=== PATIENT | male | born 1995 | race Caucasian/White ===

== ENCOUNTER 2017-06-03 13:57 | Observation (INO) | payer BC ==
--- NOTE | 2017-06-03 14:23 | EDPHY ---
H & P Time Seen by Provider: 06/03/17 14:19 HPI/ROS: Chief complaint. Possible TIA HPI. Patient is 21-year-old male presents emergency department with a 4 min episode of double vision today. It spontaneously resolved. The patient has a history of CVAs and TIAs beginning back in February when he experience double vision. He had also right vision loss in March and MRI showed old CVAs including CVA in the cerebellum and occipital areas. The patient was started on Plavix. On 05/20 the patient again had another TIA this time with left- sided visual loss. He was then started on Coumadin. Apparent MRI showed a CVA in the temporal lobe. Workup is indicated a possible pulmonary shunt as an etiology. 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 The episode today had no peripheral symptoms including no weakness or altered sensation. Denies chest discomfort or trouble breathing. He is now back to normal. He had a INR done today which showed an INR of 1.88. Much of the patient's workup has been done in [place]. He was seen by neurologist at [facility] also. ROS Constitutional. no fever/chills, no weakness Eyes. Change in vision ENT. no sore throat, no nasal drainage Cardiovascular. no chest pain Respiratory. no shortness of breath, no cough Abdominal. no abdominal pain, no nausea/vomiting, no diarrhea . no problems urinating MS. no calf pain/swelling, no neck/back pain, no joint pain Skin. no rash Lymph. no swollen glands Neuro. no headache, no dizziness, no difficulty walking or with speech Past Medical/Surgical History: CVA on Coumadin, vitiligo, possible antiphospholipid syndrome Social History: Single, nonsmoker, no alcohol Smoking Status: Never smoked Physical Exam: General Appearance: Alert well-developed male no distress vital signs are stable Eyes: Pupils equal and round no pallor or injection. ENT, Mouth: Mucous membranes are moist. Respiratory: There are no retractions, lungs are clear to auscultation. Cardiovascular: Regular rate and rhythm. Gastrointestinal: Abdomen is soft and nontender, no masses, bowel sounds normal. Neurological: Awake and alert, sensory and motor exams grossly normal. Speech is normal. Cranial nerves are normal. There is slight pronator drift which apparently is residual from his previous CVA. Kbwjwa-pl-boht is normal. Otherwise is good strength and wzhl-as-gblq is normal. Right-sided visual field cut with confrontational testing Skin: Warm and dry, no rashes. Musculoskeletal: Neck is supple nontender. Extremities symmetrical, full range of motion. Psychiatric: Patient is oriented X 3, there is no agitation. Constitutional: Initial Vital Signs Heart Rate 75 06/03/17 14:12 Respiratory Rate 18 06/03/17 14:12 Blood Pressure 115/70 06/03/17 14:12 O2 Sat (%) 95 06/03/17 14:12 O2 Delivery Mode Room Air Allergies/Adverse Reactions: Penicillins Allergy (Verified 06/03/17 20:07) Rash Home Medications: Medication Instructions Recorded Warfarin Sodium [Coumadin 4MG (*)] 4 mg PO DAILY@1830 06/03/17 Medical Decision Making - Diagnostics Imaging Results: Imaging Impressions Head CT 06/03/17 15:13 Impression: 1. Encephalomalacia involving the inferolateral and superior portions of the right cerebellum and the medial inferior left occipital cortex, consistent with old posterior circulatory infarcts. 2. There is no acute intracranial abnormality identified on this unenhanced CT evaluation. If there is further clinical concern regarding the patient's symptoms, MR imaging is suggested, if not otherwise contraindicated. Findings were discussed with SVETA TRIMBLE MD at 15:35, on 06/03/2017. Brain MRI 06/03/17 15:29 Impression: 1. Small focal area of diffusion restriction involving the right occipital cortex suspicious for a tiny focus of acute ischemia, new from the prior examination. 2. Remote ischemic infarctions involving the inferior and superior aspects of the right cerebellar hemisphere, similar to the prior exam. Results called to Dr. Sveta Trimble in the Emergency Department at the time of the interpretation.. Head MRA 06/03/17 16:17 Impression: Normal MRA of the [place] as detailed above. Findings discussed with Sveta Trimble M.D. at 17:55 hour, 06/03/2017. Noncontrast head CT shows evidence of old infarcts but no evidence for intracranial bleeding MRI and MRA show a small cortical ischemic infarct Procedures: IV normal saline, monitor Lovenox subcu. Coumadin by mouth ED Course/Re-evaluation: 4:45 p.m. patient tells me he had another 5 2nd episode of double vision. As he we know his INR is low he will be given Lovenox prior to MRI. I have discussed the case with patient's neurologist in [place] Dr. Vishal Greer [phone] who recommends MRI with diffusion an MR angiogram of his brain. Dr. valerie calvillo feels that the patient may be discharged fall appears normal I attempted to speak with patient's neurologist at [facility] Dr. Layla Calderón [phone] but never received a call back. I relayed to the family that the noncontrast head CT shows no evidence of intracranial bleeding I talked with the family regarding findings a new small cortical ischemic infarct that appears to be new today. The patient, his parents and I discussed treatment plan including recommendation for admission. They expressed understanding and agreement. I consulted discussed case with Dr. Camarena, hospitalist who agrees to the admission I consulted discussed case with Dr. Bey, neurology, who agrees with treatment plan and will consult on the patient Differential Diagnosis: Patient is a young male having multiple CVAs and TIAs. We see a new infarct on MRI today. He had visual symptoms and subtherapeutic INR. He has now been treated with Lovenox and extra Coumadin. A patient working diagnosis is probable antiphospholipid syndrome or pulmonary shunt. Critical Care Time: Critical care time exclusive procedure 50 min - Data Points Medications Given: Discontinued Medications Enoxaparin Sodium (Lovenox) 60 mg SC EDNOW ONE Stop: 06/03/17 16:46 Last Admin: 06/03/17 17:56 Dose: 60 mg Warfarin Sodium (Coumadin) 8 mg PO EDNOW ONE Stop: 06/03/17 19:24 Last Admin: 06/03/17 19:57 Dose: 8 mg Departure - Departure Disposition: [facility] Inpatient Acute Clinical Impression: Acute ischemic stroke Condition: Fair
[2017-06-03] MEDS ORDERED: GADOBUTROL 10 ML VIAL IVP ONE (16:31)
[2017-06-03] MEDS ORDERED: ENOXAPARIN 60 MG/0.6 ML SYR SC ONE (16:45)
[2017-06-03] MEDS ORDERED: WARFARIN SODIUM 4 MG TAB PO ONE (19:23)
[2017-06-03] MEDS ORDERED: ACETAMINOPHEN 325 MG TAB PO PRN (20:58)
[2017-06-03] MEDS ORDERED: ONDANSETRON 4 MG/2 ML VIAL IVP PRN (20:58)
--- NOTE | 2017-06-03 21:31 | GHP ---
[f rep st] HISTORY AND PHYSICAL DATE OF ADMISSION: 06/03/2017 CHIEF COMPLAINT: Double vision. HISTORY OF PRESENT ILLNESS: This is a 21-year-old male, who has had 5 strokes since March of this year. He has been worked up, and has a working diagnosis of antiphospholipid antibody syndrome with possible pulmonary shunt which has not been proven. He was started on Coumadin at the beginning of t he month. At 1:30 today, he developed double vision which lasted for 4 minutes and then self resolve d. Currently, he is asymptomatic. He has some residual right arm numbness and coordination problems and some mild weakness. He denies any new focal numbness or weakness at this time. PAST MEDICAL HISTORY: Vitiligo and shingles. PAST SURGICAL HISTORY: Denies. MEDICATIONS: Warfarin. ALLERGIES: Penicillin. SOCIAL HISTORY: He is from [place], but is in college in [place]. He is followed by a neurologist at the [facility]. He denies any alcohol, tobacco, or illicit drug use. FAMILY HISTORY: Significant for strokes in both of his paternal grandparents, as well as an AR in hi s maternal grandfather which occurred in his 50s. REVIEW OF SYSTEMS: Comprehensive 10-point review of systems was done and is negative, except for as mentioned in the HPI. PHYSICAL EXAM: VITAL SIGNS: Blood pressure 130/82, pulse of 81, respiratory rate 16, O2 saturation 96% on room air. Temperature afebrile. GENERAL: No acute distress. HEAD: Normocephalic, atraumat ic. EYES: PERRLA. Sclerae anicteric. MOUTH: Moist mucous membranes. NECK: Supple. No lymphade nopathy. CARDIOVASCULAR: S1, S2. No JVD. No lower extremity edema. PULMONARY: Lungs are clear. No wheezes, rales, or rhonchi. ABDOMEN: Soft, nontender, nondistended. No guarding or rebound ten derness. Normoactive bowel sounds. EXTREMITIES: No clubbing or cyanosis. NEURO: Cranial nerves 2 -12 grossly intact. No focal motor or sensory deficits. Face is symmetric. There is no pronator dr ift. No nystagmus. SKIN: Clear. No rashes. DIAGNOSTICS: INR 1.88. A brain MRI done earlier today, showed a small focal area of diffusion restriction involving the righ t occipital cortex suspicious for tiny focus of acute ischemia. There are also remote ischemic infar ctions involving the inferior and superior aspect of the right cerebellar hemisphere. ASSESSMENT: This is a 21-year-old male with history of recurrent cerebrovascular accident thought to be due to antiphospholipid antibody syndrome, presenting with: Suspected small acute cerebrovascular accident which presented with diplopia that has since resolved. PLAN: The patient will be admitted to the stroke unit. Dr. Bey has been called. The patient does not meet indications for tPA given the resolution of his symptoms. He has been given a dose of Lovenox in the Emergency Department given his subtherapeutic INR. The patient will be admitted to the hospital under observation status. /[id number]/MODL
[2017-06-04 05:31] VITALS: O2SAT 95
[2017-06-04 06:19] LABS: INR 2.01 (0.83-1.16); PROTIME(PATIENT) 22.8 SEC (12.0-15.0)
[2017-06-04 08:16] VITALS: BP 115/70; PULSE 73; RESP 18; TEMP 97.6
[2017-06-04] MEDS ORDERED: ENOXAPARIN 60 MG/0.6 ML SYR SC SCH (10:00)
--- NOTE | 2017-06-04 10:22 | GDS ---
[f rep st] DISCHARGE SUMMARY DISCHARGE DIAGNOSES: 1. Acute right occipital cortex stroke. 2. History of cerebrovascular accident x5, thought possibly due to antiphospholipid syndrome versus possible pulmonary shunt, which has not been proven. He has had 5 strokes since March and was started on Coumadin at beginning of the month. He developed double vision yesterday that lasted 4 minutes and self-resolved. He had some residual right arm numbness and coordination problems with mild weakness. He denies any new focal numbness or weakness. HOSPITAL COURSE BY PROBLEM: Acute right occipital cortex stroke: Patient's primary neurologist is at [facility], and Dr. Bey has contacted him. It was thought he has borderline antiphospholipid; studies once being slightly positive and once being negative. They are treating him with Coumadin and at this point, will treat with a goal of 2.5-3. His INR was subtherapeutic at 1.8 at admission, and he was dosed with Lovenox to today, so will dose him once before discharge, and then he is to take 8 mg tonight of Coumadin and 6 tomorrow. He will have a repeat INR on Friday. Patient is stable for discharge. NEW MEDICATIONS: Coumadin 8 mg tonight, 6 mg tomorrow. FOLLOWUP: 1. His primary neurologist. 2. INR on Friday. PHYSICAL EXAMINATION: VITAL SIGNS: Today's temperature 36.4, blood pressure 115/70, heart rate 70s, respirations 18, 95% on room air. GENERAL: Well- appearing male sitting in bed in no acute distress. HEENT: PERRLA. EOMI. Oropharynx clear. CV: Regular rate and rhythm. No murmurs, gallops, or rubs. LUNGS: Clear. ABDOMEN: Soft, nontender, nondistended. Positive bowel sounds. : No Reyes. MUSCULOSKELETAL: Moving all 4 extremities. NEUROLOGIC : 2 through 12 intact. PSYCH: Alert and oriented x3. /[id number]/MODL MTDD
--- NOTE | 2017-06-04 10:32 | GCON ---
[f rep st] CONSULTATION NEUROLOGIC CONSULTATION REFERRING PHYSICIAN: Oumar Camarena DO HISTORY OF PRESENT ILLNESS: The patient is a 21-year-old gentleman who I am asked to see in neurolog ic consultation regarding chief complaint of some double vision and some transient visual field impai rment to the right. He has a very complex history of recent development of acute strokes of uncertai n cause but working diagnosis of possible pulmonary shunting or antiphospholipid antibody syndrome fo r which he is now on anticoagulation with Coumadin. The goal has been 2-3 for the INR. Yesterday it was 1.88, and he described an episode for about 4 minutes where he had some double vision that spont aneously resolved. He also had some complaint of transient right visual field change. His MRI scan here showed a potential new area of ischemia on diffusion-weighted imaging in the right occipital lob e of about 4-5 mm. MR angiogram of the head was normal. Normal sinus rhythm on EKG. Our emergency room physician had direct consultation over the phone with Dr. Greer, and I spoke to him as well this morning to update him on what is happening. The patient says he feels back to his baseline. I have had conversations today with him as well as his mother and also updated the [facility] Clinic back in the [place] area for an update and recommendations on ongoing management. PAST MEDICAL HISTORY: As outlined above. In the course of his workup, there has been some evidence of embolic phenomena using transcranial Doppler, picking up some embolic phenomena over the left midd le cerebral artery on one of the studies, but ischemic changes on MRI have been in the posterior circ ulation distribution and no vascular anomalies have specifically been identified and no shunting seen within the heart itself on bubble studies. On one occasion, he had mild elevations of labs supporti ng the antiphospholipid antibody syndrome, but on another occasion, he did not. Past medical history otherwise notable for vitiligo and prior shingles. No surgeries. MEDICATIONS: The only medicine is Coumadin and he takes 1 multivitamin per day that does not have vi tamin K in it. ALLERGIES: To penicillin. SOCIAL HISTORY: He is a student in [place]. No alcohol, tobacco, or drug use. FAMILY HISTORY: Notable for myocardial infarction in his grandfather in his 50s. REVIEW OF SYSTEMS: Otherwise unremarkable. CURRENT PHYSICAL EXAM: NIH stroke scale of 2 based on the right visual field impairment which is old and mild discoordination of movement in the right arm which is also old. NECK: Supple, with no bru its or masses. CARDIAC: Regular rate and rhythm. No murmur. NEUROLOGIC: He is alert and oriented with no recent or remote memory impairment. Good concentration, attention and [facility]. He is very calm and appropriate. Pupils 4 mm and reactive. Extraocular movements are intact. Partial right visual field impairment. Normal facial sensation and strength. Palate elevates symm etrically and tongue protrudes midline. Motor exam: Normal muscle bulk and tone with 5/5 strength, but mild discoordination on [id number]-[id number] with the right hand. Sensation is preserved for temperatu re and light touch. Reflexes 2+. DIAGNOSTIC STUDIES: As outlined above. Current INR of 2.01. The lipid profile: Triglycerides 201, cholesterol 153, LDL 77, HDL 36. MR angiogram of the head is normal. Brain MRI showing a small area of focal diffusion change in the right occipital cortex. Remote infarctions involving inferior and superior aspects of right cerebell ar hemisphere similar to the prior exam from May at [facility]. IMPRESSION: Today's 70-minute visit was predominantly counseling regarding his condition and managem ent strategies and review of the appropriate next steps. His mother was specifically asking whether his INR should be closer to 2.5 or 3. I explained that we do not really know, but that seems reasona ble, so I spoke to the Coumadin Clinic with that goal in mind. He will take 8 mg of Coumadin tonight and 6 mg tomorrow and have a repeat level checked in 2 days and then further adjustments made either through our office or through the Coumadin Clinic. Whether further workup is needed will be determi ritu by Dr. Greer and other stroke specific neurologists, but we will continue to be involved in any w ay necessary or helpful. We have consideration for angiogram, but at this point, the patient would p refer doing that in the [place] area with his regular provider. His mother is expressing some reticen ce on when to send him back to [place], but they will have further discussions about that as a family and we will certainly support any decisions they need. I am happy to implement any changes recommend ed by any of his principal stroke neurologists. Copy requested to: Dr. Calderón [facility] ([place], [place]) Dr. Vishal Greer [place] /[id number]/MODL
--- NOTE | 2017-06-04 13:09 | ASDISCHSUM ---
Discharge Information Plan Status:Home with No Needs Medically Cleared to Leave: Discharge Date:06/04/2017 12:24 PM CM D/C Disposition:Home, Routine, Self-Care ADT D/C Disposition:Home, Routine, Self-Care Projected Discharge Date:06/04/2017 12:24 PM Transportation at D/C: Discharge Delay Reason: Follow-Up Date:06/04/2017 12:24 PM Discharge Slot: Final Diagnosis: Placement Information Patient Contact Information Contact Name:TITUS Relationship:Mother Address: Work Phone: City: [facility] [place] Phone: State/[place] Code: Email: Financial Information Financial Class:HMO and PPO Plans Primary Plan Desc: OUT OF STATE PPO Primary Plan Number:[id number] Secondary Plan Desc: Secondary Plan Number: Assessment Information Intervention Information Intervention Type:*Incorrect Registration Date of Service:06/04/2017 04:45 AM Patient Type:Inpatient Staff Member:DULCE MARIA Pineda, Erendira Hours: Discipline: Severity: Comment:
[2017-06-04] MEDS ORDERED: WARFARIN SODIUM 4 MG TAB PO ONE (18:00)
== END 2017-06-04 12:24 | disposition home or self-care (01) ==
LOC: INTOOBSV 19:34 → F3N 21:01
PROVIDERS: ADMIT Family Medicine; ATTEND Internal Medicine
DX: I63.9 Cerebral infarction, unspecified (principal); I69.398 Other sequelae of cerebral infarction; R29.702 NIHSS score 2; H02.739 Vitiligo of unspecified eye, unspecified eyelid and periocular area; Z79.01 Long term (current) use of anticoagulants; Z82.3 Family history of stroke; Z82.49 Family history of ischemic heart disease and other diseases of the circulatory system; Z88.0 Allergy status to penicillin
CPT/HCPCS: 70450; 70544; 70553; 96372; 99291; G0378; A9585; J1650

== ENCOUNTER 2017-06-10 14:30 | Inpatient (IN) | payer BC ==
--- NOTE | 2017-06-10 14:42 | EDPHY ---
H & P HPI/ROS: CHIEF COMPLAINT: Diplopia, dizziness, recent CVA HISTORY OF PRESENT ILLNESS: The patient is an anticoagulated 21 y/o male with history of multiple CVAs without clear etiology arriving with his family complaining of diplopia and dizziness onset at 14:20, 15 minutes ago. Sudden onset of severe room spinning sensation and diplopia 15 minutes ago. Difficulty ambulating b/c of vertigo. No associated SEGOVIA or other sx. No allev/aggrev factors. Starting in February 2017 he had a few episodes of diplopia, but was not evaluated at that time. On 03/15/17 he developed a sudden onset migraine SEGOVIA with diplopia and was admitted at [facility] on 03/18/17 for CVA. An MRI there showed right-sided occipital and cerebellar CVA per mother. He had an extensive work up including head and neck CTAs, ADELAIDE, echocardiogram, Holter monitor, and transcranial Doppler studies. Evaluation normal to date. Mother states neurologists there think he may have a pulmonary shunt that they have been unable to locate. He was started on Plavix in March, but switched to Coumadin 05/13/17 after he had a recurrent episode. He was evaluated and admitted here 06/03/17 with the same symptoms and had an acute right occipital CVA with old right cerebellar CVAs on MRI. His INR was low at that time. He denies headache, weakness, or paresthesias. REVIEW OF SYSTEMS: Constitutional: No fever, no chills Eyes: see HPI ENT: No sore throat Respiratory: No cough, no shortness of breath Cardiac: No chest pain Gastrointestinal: no vomiting, no abdominal pain Genitourinary: no dysuria Musculoskeletal: No leg pain or swelling Skin: No rash Neurological: see HPI Psychiatric: No depression - Personal History Tetanus Vaccine Date: 2013 - Medical/Surgical History PMH: PMH includes: 1. CVA x5 since 2016, most recent 06/03/17 here. - Coumadin 2. Vitiligo 3. Shingles Prior medical records reviewed including admission 06/03/17 for CVA. Hx Asthma: No Hx Chronic Respiratory Disease: No Hx Diabetes: No Hx Cardiac Disease: No Hx Renal Disease: No Hx Cirrhosis: No Hx Alcoholism: No Hx HIV/AIDS: No Hx Splenectomy or Spleen Trauma: No Other PMH: PMH: vitaligo, anti phospho lipid syndrome, CVA, TIA. PSH:wisdom teeth extraction, Shingles - Social History Smoking Status: Never smoked Additional Social History: Mother and sister at bedside. 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 Lives in [place]. No alcohol, illicit drug use, tobacco use. [facility] neurology, [facility] neurologist is Dr. Bey , also evaluated at [facility] neurology. - Physical Exam Exam: Initial brief exam prior to CT: General Appearance: Alert, appears uncomfortable, keeping eyes closed, hands over eyes Eyes: not examined ENT, Mouth: Mucous membranes moist Neck: Normal inspection Respiratory: Lungs are clear to auscultation Cardiovascular: Regular rate and rhythm Gastrointestinal: Abdomen is soft and non-tender Neurological: A&O, equal and normal strength in extremities. No slurred speech or aphasia. - Limited by quick transfer to CT. Skin: Warm and dry Extremities: normal inspection Psychiatric: Mood and affect normal Constitutional: Initial Vital Signs Heart Rate 84 06/10/17 14:42 Respiratory Rate 16 06/10/17 14:42 Blood Pressure 128/75 H 06/10/17 14:42 O2 Sat (%) 97 06/10/17 14:42 O2 Delivery Mode Room Air Allergies/Adverse Reactions: Penicillins Allergy (Verified 06/10/17 14:46) Rash Home Medications: Medication Instructions Recorded Multivitamins [Multivitamin (*)] 1 each PO DAILY 06/10/17 Warfarin Sodium [Coumadin 4MG (*)] 8 mg PO DAILY@1830 06/10/17 Atorvastatin Calcium [Lipitor 20 20 mg PO DAILY #30 tab 06/11/17 mg (*)] Enoxaparin [Lovenox 60 MG (*)] 60 mg SC BID syr 06/11/17 Medical Decision Making - Diagnostics Imaging Results: CT brain read by the radiologist: Normal CTA of the brain and neck normal, read by the radiologist MRI of the brain read by the radiologist: Acute occipital infarct. Imaging: Discussed imaging studies w/ life teacher Radiologist, I viewed and interpreted images myself ED Course/Re-evaluation: 1434: Assessed patient urgently and in-house Stroke alert activated. Anticoagulated 21 y/o male presents with acute onset diplopia and dizziness at 14:20, exactly the same as symptoms with prior stroke 1 week ago. Limited neurologic exam normal, no slurred speech or aphasia, normal motor exam. Eye exam not initially performed due to priority for quick CT. stat INR ordered, likely not a tpa candidate since he is on Coumadin. 1437: Patient sent to CT. 1442: Consulted with Dr. Catalan, [facility]. He will review CTs and assess patient via telemedicine robot upon return from CT. 1451: Noncontrast head CT shows nothing acute per radiologist. Head and neck CTAs ordered. 1505: The 12 lead EKG was interpreted by myself. Sinus rhythm rate 57. See hard copy and/or "tracemaster" electronic copy for interpretation. 1525: Consulted with Dr. Catalan. Confirms patient is not a TPA candidate due to active use of Coumadin and current INR of 2.4. Plan for admission here and stoke work up including echocardiogram bubble study. 1545: Repeat neurologic exam shows no deficits. His symptoms have completely resolved and he is comfortable at this time. NIH stroke score is zero. Discussed plan for admission with him and his family, which he agrees to. CTAs negative for acute process. Brain MRI ordered. 1715: Brain MRI shows acute left occipital stroke. d/w Dr. Segal, who consulted Dr. Catalan. MRI results d/w pt's parents. Neuro exam remains normal. Critical care time spent by me, Dr. Cyr, exclusively with this patient was 35 minutes, exclusive of PA time and exclusive of procedures. The organ system at risk was brain. Time spent in serial assessments of the patient, discussion with patient's family, consideration of TPA, neurology consultation, and review of CT scans. Differential Diagnosis: Altered mental status including but not limited to intracranial hemorrhage, migraine headache, hypoglycemia, infectious process, electrolyte abnormality, head injury and intoxicants. - Data Points Laboratory Results: Laboratory Results 06/10/17 14:45 06/10/17 14:45 Medications Given: Discontinued Medications Aspirin Buffered (Aspirin Ec) 81 mg PO DAILY [facility] Stop: 12/07/17 19:29 Last Admin: 06/11/17 07:59 Dose: 81 mg Enoxaparin Sodium (Lovenox) 60 mg SC ONCE ONE Stop: 06/10/17 19:26 Last Admin: 06/10/17 20:15 Dose: 60 mg Enoxaparin Sodium (Lovenox) 60 mg SC BID [facility] Stop: 12/08/17 12:14 Last Admin: 06/11/17 12:42 Dose: 60 mg Multivitamins (Tab-A-Tremayne) 1 each PO DAILY [facility] Stop: 12/08/17 08:59 Last Admin: 06/11/17 07:59 Dose: 1 each Warfarin Sodium (Coumadin) 6 mg PO DAILY@1830 [facility] Stop: 12/07/17 18:29 Last Admin: 06/10/17 18:48 Dose: 6 mg Departure - Departure [facility] Acute Clinical Impression: Diplopia CVA (cerebral vascular accident) Qualifiers: CVA mechanism: other Qualified Code(s): I63.8 - Other cerebral infarction Condition: Fair Report Scribed for: Debra Cyr Report Scribed by: Vee Eller Date of Report: 06/10/17 Time of Report: 14:56 Physician Review and Approval Statement: 06/10/17 14:56 Portions of this note were transcribed by a medical doctor. I personally performed a history, physical exam, medical decision making, and confirmed accuracy of information the transcribed note.
[2017-06-10 15:01] LABS: PLATELET COUNT 275 10^3/uL (150-400)
--- NOTE | 2017-06-10 15:07 | CPEKG ---
Heart Rate: 57 RR Interval: 1053 P-R Interval: 156 QRSD Interval: 76 QT Interval: 356 QTC Interval: 347 P [place]: 53 QRS [place]: 66 T Wave [place]: 60 EKG Severity - NORMAL ECG - EKG Impression: SINUS RHYTHM Electronically Signed By: Debra Cyr 10-Jun-2017 20:06:33
[2017-06-10 15:12] LABS: INR 2.39 (0.83-1.16); PROTIME(PATIENT) 26.1 SEC (12.0-15.0)
--- NOTE | 2017-06-10 15:35 | PDCONSULT ---
License Clerk Note: [facility] Tele[facility] Note Demographics Consult Type Acute Stroke First Name Vishal Last Name Pilar Date of 1995 Age: 21 Gender Male Time of initial page ([place] ): 06/10/2017 14:40 Time of return call ([place] ): 06/10/2017 14:41 Time Ready to Initiate Telemed Consult ([place] Time): 06/10/2017 14:41 HPI Additional History (Free Text): 21yo man who presents with double vision since about 225PM. He feels that the double vision is side by side. In addition to this, he has dizziness. He has no slurring of speech or weakness in his arms or legs. He also has headache as well as possible light sensitivity. He has been on coumadin since a stroke that he had on June 03 in the occipital lobe region. [facility]-- Past Medical History: Stroke Social History: non-smoker, non-drinker, no drugs Medications: warfarin Exam Vitals: vital signs reviewed Additional Neuro Exam: mild gait ataxia NIHSS Time ([place] ): 06/10/2017 14:57 LOC 1a: 0 = Alert; keenly responsive LOC 1b: 0 = Answers both questions correctly LOC Commands: 0 = Performs both tasks correctly Best Gaze: 0 = Normal Visual: 0 = No visual loss Facial Palsy 0 = Normal symmetrical movements Motor Arm L: 0 = No drift; limb holds 90 (or 45) degrees for full 10 seconds Motor Arm R: 0 = No drift; limb holds 90 (or 45) degrees for full 10 seconds Motor Leg L: 0 = No drift; leg holds 30-degree position for full 5 seconds Motor Leg R: 0 = No drift; leg holds 30-degree position for full 5 seconds Limb Ataxia 0 = Absent Sensory: 0 = Normal; no sensory loss Best Language: 0 = No aphasia; normal Dysarthria: 0 = Normal Extinction + Inattention: 0 = No abnormality NIHSS: 0 Data INR elevated, 2.[address]: no bleed CTA Head no large vessel occlusion CTA Neck patent vessels Assessment Assessment: TIA, vs complex migraine/basilar migraine. This is in setting of recent occipital stroke in May Plan Lytic/Intervention: NOT IV or IA candidate, recent stroke also tPA Exclusion (< 3hr window) Actively on warfarin/Coumadin w INR>1.7 Labs Comprehensive metabolic panel, ESR, HgbA1c, Lipid Panel, UDS Imaging MRI brain without Diagnostic test echocardiogram with bubble Therapy/Eval PT/OT, Speech/Swallow therapy consult Other LDL goal less than 70, permissive HTN, I have discussed my recommendations with the referring provider Additional Recommendations: 1. continue coumadin at current dosage Disposition admit
[2017-06-10] MEDS ORDERED: ONDANSETRON 4 MG/2 ML VIAL IVP PRN (15:54)
[2017-06-10] MEDS ORDERED: ONDANSETRON DISINTEGRATING 4 MG TAB PO PRN (15:54)
[2017-06-10] MEDS ORDERED: ACETAMINOPHEN 325 MG TAB PO PRN (15:54)
--- NOTE | 2017-06-10 17:59 | GHP ---
[f rep st] HISTORY AND PHYSICAL DATE OF ADMISSION: 06/10/2017 CHIEF COMPLAINT: Diplopia. HISTORY OF PRESENT ILLNESS: A 21-year-old male with history of 5 strokes since March 2017, possibly due to antiphospholipid syndrome versus pulmonary shunts , which has not been proven. He was started on Coumadin at the beginning of March and last hospitalized 06/03/2017 here at [facility] with acute right occipital cortex stroke. He has a primary neurologist at [facility], and Dr. Bey evaluated him here. It is thought that he has had borderline antiphospholipid syndrome, since studies were slightly positive and one negative. Transcranial dopplers have been performed and showed some possible embolic phenomenon. Has been taking Coumadin with a goal of 2.5-3. I reviewed OSH records and he had TTE 03/2017 with bubble that was negative. Had repeat 05/14/17 with normal EF. He has been doing fine since discharge until this afternoon when he developed double vision while riding in the car. [place] as though the world was spinning. His mom said the episode lasted about 35 minutes and he was not talking much. When in the ED, had word loss and difficulty doing heel-to-toe walking for [place]. CTA negative, but MRI shows new left-side occipital stroke today. REVIEW OF SYSTEMS: I completed a 10-point review of systems, negative except as noted in HPI. PAST MEDICAL HISTORY: CVAs, 5 since March. Vitiligo and shingles. PAST SURGICAL HISTORY: None. MEDICATIONS: Coumadin. ALLERGIES: Penicillin. SOCIAL HISTORY: He is from [place] but is in college in [place]. He is followed by a neurologist at [facility]. Denies alcohol, tobacco, or illicit drugs. FAMILY HISTORY: Maternal aunt with migraine. Both paternal grandparents with stroke, and AL in his maternal grandfather. PHYSICAL EXAM: VITAL SIGNS: Temperature 36.6, blood pressure 115/77, heart rate is 60, respirations 18, 94% on room air. GENERAL: Well appearing, smiling , no acute distress. HEENT: PERRLA. EOMI. Oropharynx clear. CARDIOVASCULAR : Regular rate and rhythm. No murmurs, gallops, rubs. LUNGS: Clear. No crackles or wheezing. ABDOMEN: Soft, nontender, nondistended. GENITOURINARY: No Reyes. MUSCULOSKELETAL: 5/5 upper and lower extremity strength. NEUROLOGIC: 2 through 12 intact. Normal sensation to touch. +1 patellar reflexes, +2 Achilles, symmetric. PSYCHIATRIC: Alert and oriented x3. Labs: reviewed by me CTA: normal MRI: new subcentimeter left occipital cortex stroke EKG: personally reviewed: ASSESSMENT/PLAN: 1. Acute left occipital CVA: evaluated by Alok Phillips in ER and not t-pA candidate. CTA of neck and head negative. MRI shows new occipital CVA. INR 2.4 (2.5-3 is goal). Given acute CVA will dose Lovenox this evening. Spoke with Libra again and will also start baby ASA. Will have Neurology consult in the morning. Physical Therapy, Occupational Therapy, Speech evaluation as well. Will continue Coumadin at current dose. Frequent neuro checks. Still unclear etiology. Would continue current treatment. Had recent TTE in May 2017. DIET: Regular. DVT PROPHYLAXIS: On Coumadin. DISPOSITION: Patient warrants inpt admission, given acute CVA, warranting frequent neuro checks and Neurology evaluation. /[id number]/MODL MTDD
[2017-06-10] MEDS ORDERED: WARFARIN SODIUM 4 MG TAB PO SCH (18:30)
[2017-06-10] MEDS ORDERED: ENOXAPARIN 60 MG/0.6 ML SYR SC ONE (19:25)
[2017-06-10] MEDS: ASPIRIN EC 81 MG TAB PO SCH (20:15)
[2017-06-11 05:23] LABS: INR 2.48 (0.83-1.16); PROTIME(PATIENT) 26.8 SEC (12.0-15.0)
[2017-06-11] MEDS: ASPIRIN EC 81 MG TAB PO SCH (07:59)
[2017-06-11] MEDS ORDERED: MULTIVITAMINS 1 EACH TAB PO SCH (09:00)
--- NOTE | 2017-06-11 09:11 | HOSPPROG ---
Hospitalist Progress Note Assessment/Plan: #Recurrent CVA: evaluated by Dr. Garza. Agrees with transfer to [facility] for TCDs. new INR goal 2.5-3.5. Cont coumadin and Lovenox bridge #Disp: DC today See dictation for full A&P Subjective: no diplopia today Objective: Vital Signs Temp Pulse Resp BP Pulse Ox 36.6 C 72 16 106/77 96 06/11/17 07:20 06/11/17 07:20 06/11/17 07:20 06/11/17 07:20 06/11/17 07:20 PT 26.8 SEC (12.0-15.0) H 06/11/17 04:32 INR 2.48 (0.83-1.16) H 06/11/17 04:32 - Physical Exam Constitutional: no apparent distress Eyes: PERRL Ears, Nose, Mouth, Throat: moist mucous membranes Cardiovascular: regular rate and rhythym Respiratory: no respiratory distress Gastrointestinal: normoactive bowel sounds, soft, non-tender abdomen Genitourinary: no bladder fullness Skin: warm Musculoskeletal: full muscle strength Neurologic: other (mild ataxia of right hand) Psychiatric: interacting appropriately ICD10 Worksheet Patient Problems: Problems Problem Status Onset CVA (cerebral vascular accident) Acute Diplopia Acute Acute ischemic stroke Acute
--- NOTE | 2017-06-11 09:51 | ASMTCASEMG ---
Living Arrangements What is your living Answers: With Other (Not Family) arrangement? Who do you live with? Type Of Residence What kind of residence do Answers: Apartment you live in? Discharge Plan Comments Coordination Status Comments Notes: Pt is a 21 y/o man admitted for diplopia. Pt has had 5 strokes within the last 3 months. Pt is currently attending school in [place], [place]. Pt has a supportive family here in [place]. Dr. Garza is consulting this AM. It is uncertain what the d/c plans are. There is a possibility that pt may be transferred to [facility]. Therapies have been ordered and awaiting recommendations. Needs are TBD at this time. CM to follow. Plan: TBD Date Signed: 06/11/2017 09:51 AM Electronically Signed By:SAURABH Quijano
[2017-06-11] MEDS ORDERED: ENOXAPARIN 60 MG/0.6 ML SYR SC SCH (12:15)
--- NOTE | 2017-06-11 13:00 | NEUROPROG ---
Assessment: [id number] Neurology Consult Note: CC: Dr. Koki Segal consulted neurology for recurrent strokes. Results placed in EMR for her review. HPI: Pt has a history of 5 strokes since March 2017 possibly due to antiphospholipid antibody syndrome versus pulmonary shunts (unclear exactly which mechanism). He was started on coumadin at the beginning of March 2017 ( goal 2-3) and last hospitalized 06/03/17 at [facility] w/acute R occipital cortical stroke. He has a primary neurologist at [facility] in [place], [place]. Transcranial dopplers have been performed and showed some possible embolic phenomena. He had a TTE 03/2017 w/bubble that was negative. He had a new stroke on 06/03/17 (punctate right occipital) so came to [facility]. He was seen on at [facility] by Dr. Velazquez at which time Dr. Velazquez changed his coumadin INR goal to 2.5-3. He was discharged from [facility] on 06/04/18 and was doing well until 06/10/17 when he developed double vision and vertigo while riding in the car. He was brought to [facility] ER where tele-neurology felt he was not an IV TPA candidate. A brain MRI showed an acute punctate left occipital stroke. CTA head/neck was unremarkable. INR was found to be only 2.39 (goal 2.5-3) and LDL was 104. I initially saw the patient on 06/11/17. His neurologic exam showed right arm ataxia and right sided homonymous hemianopsia (old findings from previous right cerebellar and left occipital strokes) but no new neurologic deficits. I discussed his case with his stroke neurologist in [place] (Dr. Vishal Greer). Dr. Greer recommended changing INR goal from 2.5-3 to 2.5-3.5 and obtaining transcranial dopplers to better ascertain where his strokes were coming from. I will request that he be transferred to the [facility] or [facility] (both in [facility]) for transcranial dopplers as we do not have that capability at our [facility]. PMHx: stroke syndrome with 5 strokes since March 2017 (mechanism is antiphospholipid antibody syndrome versus pulmonary shunt, had large work up at [facility] in [place], [place]), vitiligo, shingles Home Meds: coumadin SHx: goes to [facility] in [place], [place] FHx: migraine, stroke, NM ROS: No acute fever, total vision loss, active severe chest pain, respiratory failure, total body severe rash, total bowel/bladder incontinence, psychosis, active seizures, or active bleeding O: VS reviewed General: Alert Eyes: Fundoscopic exam not able to visualize optic disks CV: Heart RRR, no murmur, no carotid bruit Lungs: Clear to auscultation bilaterally, no rhonci or rales Neuro: - Mental: . Oriented x person/place/date . concentration appears normal . speech fluency/comprehension normal . memory appears normal . fund of knowledge appear intact - Cranial Nerves: . II: PERRL, VF shows right sided homonymous hemianopsia . III/IV/: EOMI, no nystagmus, normal smooth pursuits, no Ptosis . V: facial sensation intact to LT . VII: face symmetric to eye closure and smile . VIII: hearing intact to conversation . IX/X: uvula raises symmetrically . XI: SCM 5/5 B/L strength . XII: tongue protrudes midline w/nl strength - Motor: . Tone: normal tone in all 4 extrem . Strength: no pronator drift, strength 5/5 throughout (B/L delt, bic, tri, hand marine rigger, hf/he, df/pf) - Reflexes: B/L bic/BR/patella 2/4 - Sensory: all 4 extrem intact to light touch - Coord: R arm ataxia - Gait: deferred - NIH SS 3 (2 for right sided visual field loss, 1 for right arm ataxia) Labs: 06/10/17- CBC wnl, INR 2.39H, Chem wnl 06/11/17- LDL 104H Rads: 06/10/17- Brain MRI w/o con: non-acute right cerebellar lacunar stroke and bilateral occipital strokes, acute punctate left occipital cortical stroke (I personally visualized the images on 06/11/17) 06/10/17- CTA head/neck: unremarkable Assessment: 1. Recurrent Stroke Syndrome: Neurologic exam on 06/11/17 showed right sided homonymous hemianopsia and right arm ataxia. Pt with 5 strokes since March 2017 (right cerebellar, b/l occipital, new left occipital on 06/10/17). Large workup performed at [facility] in [place], [place] to include transcranial dopplers. Etiology at that time felt to be antiphospholipid antibody syndrome versus pulmonary shunt. Treatment decision was to begin coumadin with INR goal of 2.5-3. Unfortunately, it appears the patient was only at an INR of 2.39 on the day of his new left occipital stroke. I recommend obtaining INR goal of 2.5 -3.5 and transferring patient to [facility] for transcranial doppler to further evaluate the cause of his strokes. Plan: - Case discussed with his stroke expert in [place], [place] and it was recommended changing INR goal to 2.5-3.5 to address his recurrent strokes - Case discussed with his stroke expert in [place], [place] (Dr. Greer) and it was recommended pt receive transcranial dopplers to further evaluate his stroke cause so I recommend transferring to [facility] to obtain those (he has seen a stroke expert, Dr. Calderón, there in the past) - Blood pressure goal < 140/90 - H1AC < 7.0 - LDL < 70 (104), recommend statin Objective: Vital Signs Temp Pulse Resp BP Pulse Ox 36.9 C 69 19 120/76 94 06/11/17 12:00 06/11/17 12:00 06/11/17 12:00 06/11/17 12:00 06/11/17 12:00 PT 26.8 SEC (12.0-15.0) H 06/11/17 04:32 INR 2.48 (0.83-1.16) H 06/11/17 04:32 Allergies/Adverse Reactions: Penicillins Allergy (Verified 06/10/17 14:46) Rash
--- NOTE | 2017-06-11 14:22 | PDMN ---
Medical Necessity Medical necessity: Patient meets inpatient criteria per physician note and [facility] M -83 Stroke: Ischemic - 2 days - (acute L occipital lobe cortical infarct on MRI ; history of 5 strokes since Mar, 2017, possibly d/t antiphospholipid syndrome vs pulmonary shunts. Not tPa candidate per [place]; neuro consult, PT/OT, speech eval pending.)
[2017-06-11 16:21] VITALS: BP 124/73; PULSE 81; RESP 20; TEMP 98.7; O2SAT 95
--- NOTE | 2017-06-12 01:59 | GDS ---
[f rep st] DISCHARGE SUMMARY DISCHARGE DIAGNOSES: 1. Acute left occipital cerebrovascular accident. 2. Recent right occipital cerebrovascular accident. 3. Recurrent cerebrovascular accidents, 5 since March 2017, secondary to possible antiphospholipid syndrome. HISTORY OF PRESENT ILLNESS: A pleasant 21-year-old male with a history of 5 strokes since 2017, possibly due to antiphospholipid syndrome versus a pulmonary shunt, which has not been fully proven. He was started on Coumadin in March but was last hospitalized here at [facility] on 06/03 with an acute right occipital cortex stroke. His primary neurologist, Dr. Greer , is at [facility] and has been significantly involved in his care by speaking to our consultants. Transcranial Dopplers have been done in the past and showed some possible embolic phenomenon. He was discharged here last week on Coumadin with a goal of 2.5 to 3. He had an echo 03/28/2017 with bubble that was negative. Had a repeat 05/14/2017 with normal EF. He was doing fine since discharge a week ago until yesterday when he developed double vision while riding in the car. He blinked and then opened his eyes and felt the world was spinning. His mom said the episode lasted 35 minutes, and he was not talking much on the car ride over to the emergency room. When in the ED, he had difficulty doing heel-to-toe walking and word-finding loss. He was evaluated by [facility] and not a tPA candidate. CTA was negative, but MRI showed a new left-sided occipital stroke. HOSPITAL COURSE BY PROBLEM: 1. Acute left occipital stroke, recurrent: Multiple strokes since 2017 despite anticoagulation. Mechanism is thought to be antiphospholipid antibody syndrome versus pulmonary shunt. He has had an extensive workup at [facility] in [place], [place]. His primary neurologist is Dr. Greer. Dr. Garza spoke with him during this hospitalization, who recommended increase in his INR goal to 2.5 to 3.5. Recommend repeating transcranial Dopplers to better ascertain where the strokes are coming from. I have spoken with Dr. Pacheco at the [facility], who will accept patient for transfer for this procedure. I initially started aspirin, but Dr. Greer did not think this was necessary given the increase in INR goal. Will start a statin since LDL is greater than 75. He has resumed Coumadin, as well as a Lovenox bridge with an INR of 2.4 today. Patient with no new neuro deficits today. He will transfer to [facility] this afternoon. Appreciate their assistance. DISPOSITION: Patient stable for transfer to [facility]. MEDICATIONS: New: 1. Lipitor 20 mg. 2. Lovenox 60 mg b.i.d. FOLLOWUP: 1. Repeat transcranial Dopplers. 2. INR. TIME SPENT ON DISCHARGE: Greater than 60 minutes discussing case with Dr. Garza , Dr. Pacheco, and coordinating transfer. /[id number]/MODL MTDD
--- NOTE | 2017-06-12 12:53 | ASDISCHSUM ---
Discharge Information Plan Status:Acute Transfer Medically Cleared to Leave:06/10/2017 Discharge Date:06/11/2017 06:30 PM CM D/C Disposition:[facility] ADT D/C Disposition:[facility] Projected Discharge Date:06/11/2017 12:00 AM Transportation at D/C:ALS/BLS Discharge Delay Reason: Follow-Up Date:06/11/2017 12:00 AM Discharge Slot: Final Diagnosis: Placement Information Patient Contact Information Contact Name:TITUS Relationship:Mother Address: Work Phone: City: [facility] Phone: State/Zip Code: Email: Financial Information Financial Class:HMO and PPO Plans Primary Plan Desc: OUT OF STATE PPO Primary Plan Number:[id number] Secondary Plan Desc: Secondary Plan Number: Assessment Information [facility] Initial CM Assessment Living Arrangements What is your living Answers: With Other (Not Family) arrangement? Who do you live with? Type Of Residence What kind of residence do Answers: Apartment you live in? Discharge Plan Comments Coordination Status Comments Notes: Pt is a 21 y/o man admitted for diplopia. Pt has had 5 strokes within the last 3 months. Pt is currently attending school in [place], [place]. Pt has a supportive family here in [place]. Dr. Garza is consulting this AM. It is uncertain what the d/c plans are. There is a possibility that pt may be transferred to [facility]. Therapies have been ordered and awaiting recommendations. Needs are TBD at this time. CM to follow. Plan: TBD Date Signed: 06/11/2017 09:51 AM Electronically Signed By:SAURABH Quijano Intervention Information
== END 2017-06-11 18:30 | disposition short-term general hospital (02) | DRG 65 ==
LOC: F3N 18:32 → OBSVTOIN 06-11 10:37
PROVIDERS: ADMIT Internal Medicine; ATTEND Internal Medicine
DX: I63.9 Cerebral infarction, unspecified (principal); Z86.73 Personal history of transient ischemic attack (TIA), and cerebral infarction without residual deficits; D68.61 Antiphospholipid syndrome; Z79.01 Long term (current) use of anticoagulants; L80 Vitiligo
CPT/HCPCS: 82947-QW; 97166-GO; G0378; J1650